=== PATIENT | male | born 1955 | race Caucasian/White ===

== ENCOUNTER 2016-09-20 13:46 | Emergency (ER) | payer OTHER ==
[~2016-09-20] VITALS: Ht 172.7 cm; Wt 79.5 kg
[~2016-09-20 13:46] MED LIST: ASPIRIN 81M81 MG/TA2 PO; LEXAPRO 10MG10 MG PO; LIPITOR20 MG PO; LOPRESSOR 225 MG/TAB PO; MULTI VITAMINS1 TAB PO; SYNTHROID0.1 MG/TAB PO
[2016-09-20 13:50] VITALS: BP 143/78; PULSE 82; TEMP 98.7
== END 2016-09-20 15:54 | disposition home or self-care (01) ==
LOC: COL.ER 13:46
DX: S90.31XA Contusion of right foot, initial encounter (principal); I10 Essential (primary) hypertension; W22.8XXA Striking against or struck by other objects, initial encounter; Y92.89 Other specified places as the place of occurrence of the external cause

== ENCOUNTER 2016-09-27 08:16 | Outpatient (RCR) | payer OTHER | END 2016-12-26 | disposition short-term general hospital (02) | LOC: WSOH | DX: S90.32XA Contusion of left foot, initial encounter (principal); W20.8XXA Other cause of strike by thrown, projected or falling object, initial encounter; Y92.69 Other specified industrial and construction area as the place of occurrence of the external cause; Y99.0 Civilian activity done for income or pay; Z79.82 Long term (current) use of aspirin ==

== ENCOUNTER → 2016-11-17 | Outpatient (CLI) | payer BC | LOC: COL.RAD 09:06 | DX: R10.13 Epigastric pain (principal) | CPT/HCPCS: A9537 ==

== ENCOUNTER 2017-02-23 08:03 | Day surgery (SDC) | payer OTHER ==
[~2017-02-23] VITALS: Ht 172.7 cm; Wt 83.6 kg
[2017-02-23] MEDS ORDERED: TOPROL XL 50MG50 MG PO (08:27)
[2017-02-23] MEDS ORDERED: LIPITOR20 MG PO (08:27)
[2017-02-23] MEDS ORDERED: SYNTHROID0.1 MG/TAB PO (08:29)
[2017-02-23] MEDS ORDERED: LEXAPRO20 MG PO (08:29)
[2017-02-23] MEDS ORDERED: TIMOPTIC 0.5%-15 OS (08:30)
[2017-02-23] MEDS ORDERED: XALATAN EYE DROPS OU (08:30)
[2017-02-23] MEDS ORDERED: PRINIVIL20 MG PO (08:31)
[2017-02-23] MEDS ORDERED: THE MEDICINE S200 M2 PO (08:31)
[2017-02-23 08:37] VITALS: BP 122/78; PULSE 74; TEMP 97.2
[2017-02-23] MEDS ORDERED: PRILOTC PO (09:39)
[2017-02-23 09:45] VITALS: BP 92/61; PULSE 60; TEMP 97
[2017-02-23 10:00] VITALS: BP 89/57; PULSE 66
[2017-02-23 10:15] VITALS: BP 94/62; PULSE 63
[2017-02-23 12:02] VITALS: BP 96/58; PULSE 58
== END 2017-02-23 10:25 | disposition home or self-care (01) ==
LOC: SDCO 08:03
DX: Z12.11 Encounter for screening for malignant neoplasm of colon (principal); Z86.010 Personal history of colon polyps; K21.9 Gastro-esophageal reflux disease without esophagitis; F32.9 Major depressive disorder, single episode, unspecified; F41.9 Anxiety disorder, unspecified; E78.00 Pure hypercholesterolemia, unspecified; I10 Essential (primary) hypertension; E03.9 Hypothyroidism, unspecified; Z79.82 Long term (current) use of aspirin; R10.13 Epigastric pain
CPT/HCPCS: 43239; G0105; J2250; J2405; J3010; J7030